=== PATIENT | male | born 1980 | race Caucasian/White ===

== ENCOUNTER 2017-03-03 08:36 | Day surgery (SDC) | payer OTHER ==
[~2017-03-03] VITALS: Ht 195.6 cm; Wt 137.5 kg
[2017-03-03 09:09] VITALS: BP 170/105
[2017-03-03 09:16] VITALS: BP 170/105
[2017-03-03] MEDS ORDERED: LACTATED RINGERS 1,000 ML IV SCH (09:26)
[2017-03-03] MEDS ORDERED: bp medication PO (09:31)
[2017-03-03] MEDS ORDERED: lisinopril (09:31)
[2017-03-03] MEDS ORDERED: CHOL100011 PO (09:32)
[2017-03-03] MEDS ORDERED: OMEP-110 PO (09:32)
[2017-03-03 09:44] LABS: PATH.CAST-FLAG NOT PRESENT; SPERM-FLAG NOT PRESENT; SRC-FLAG NOT PRESENT; XTAL-FLAG NOT PRESENT; YLC-FLAG NOT PRESENT
[2017-03-03] MEDS ORDERED: CIPROFLOXACIN/PMX 400MG/200ML 200 ML ONE (09:46)
[2017-03-03] MEDS ORDERED: ROCURONIUM 10 MG/ML,10ML ONE (09:59)
[2017-03-03] MEDS ORDERED: PROPOFOL 10 MG/ML, 20ML ONE ×2 (09:59)
[2017-03-03] MEDS ORDERED: SUCCINYLCHOLINE 20 MG/ML, 10ML ONE (09:59)
[2017-03-03 10:02] LABS: ASPARTATE AMINO TRANSFERASE 35 U/L (15-37); BLOOD UREA NITROGEN 12 mg/dL (7-18)
[2017-03-03] MEDS ORDERED: MIDAZOLAM 1 MG/ML, 2ML ONE (10:04)
[2017-03-03] MEDS ORDERED: FENTANYL PF 100 MCG/2ML ONE (10:07)
[2017-03-03] MEDS ORDERED: ONDANSETRON 2MG/ML, 2ML ONE ×2 (10:41→13:49)
[2017-03-03] MEDS ORDERED: DEXAMETHASONE 4 MG/ML, 1ML ONE ×2 (10:41)
[2017-03-03] MEDS ORDERED: PHENYLEPHRINE 10 MG/ML ONE (10:48)
[2017-03-03] MEDS ORDERED: EPINEPHRINE 1 MG/ML, 1ML ONE (10:49)
[2017-03-03] MEDS ORDERED: ACETAMINOPHEN 325 MG TABLET PO PRN (11:00)
[2017-03-03] MEDS ORDERED: KETOROLAC 30 MG/1 ML IV PRN (11:00)
[2017-03-03] MEDS ORDERED: ALBUTEROL SULFATE 2.5 MG/3 ML NPPB PRN (11:00)
[2017-03-03] MEDS ORDERED: PROMETHAZINE 25 MG/ML, 1ML IV PRN (11:00)
[2017-03-03] MEDS ORDERED: hydrALAzine 20 MG/ML, 1ML IV PRN (11:00)
[2017-03-03] MEDS ORDERED: METOCLOPRAMIDE 5 MG/ML, 2ML IV PRN (11:00)
[2017-03-03] MEDS ORDERED: HYDROmorphone 1 MG/ML, 1ML IV PRN (11:00)
[2017-03-03] MEDS ORDERED: EPHEDRINE 50 MG/ML, 1ML IVPush PRN (11:00)
[2017-03-03] MEDS ORDERED: ONDANSETRON 2MG/ML, 2ML IVPush PRN (11:00)
[2017-03-03] MEDS ORDERED: OXYcodone 5 MG/5 ML ORAL.SOL UDC PO PRN (11:00)
[2017-03-03] MEDS ORDERED: MEPERIDINE/PF 25MG/0.5ML IVPush PRN (11:00)
[2017-03-03] MEDS ORDERED: HYDROcodone/APAP 7.5-325MG/15ML UDC PO PRN (11:00)
[2017-03-03] MEDS ORDERED: LABETALOL 5MG/ML, 20ML IV PRN (11:00)
[2017-03-03] MEDS ORDERED: MIDAZOLAM 1 MG/ML, 2ML IV PRN (11:00)
[2017-03-03] MEDS ORDERED: METOPROLOL 1 MG/ML, 5ML IV PRN (11:00)
[2017-03-03] MEDS ORDERED: FENTANYL PF 100 MCG/2ML IV PRN (11:00)
[2017-03-03] MEDS ORDERED: KETAMINE 10 MG/ML, 20ML ONE (11:18)
[2017-03-03] MEDS ORDERED: VASOPRESSIN 20 UNIT/ML, 1ML ONE (11:20)
[2017-03-03] MEDS ORDERED: ALBUTEROL HFA 90 MCG/SPRAY ONE ×2 (11:33)
[2017-03-03] MEDS ORDERED: GLYCOPYRROLATE 0.2MG/1ML, 5ML ONE (11:40)
[2017-03-03] MEDS ORDERED: NEOSTIGMINE 1 MG/ML, 10ML ONE (11:40)
[2017-03-03] MEDS ORDERED: OXYcodone/APAP 5/325MG TABLET PO PRN (12:00)
[2017-03-03] MEDS ORDERED: ONDANSETRON 2MG/ML, 2ML IVPush ONE (14:00)
== END 2017-03-03 14:30 ==
LOC: OUT 08:36
PROVIDERS: ATTEND Urology
DX: N20.0 Calculus of kidney (principal); I10 Essential (primary) hypertension; E78.00 Pure hypercholesterolemia, unspecified; Z91.09 Other allergy status, other than to drugs and biological substances
CPT/HCPCS: 36415; 50590; 80053; 81001; J0171; J0330; J0744; J1100; J2250; J2370; J2405; J2704; J2710; J3010; J7120; J3490